=== PATIENT | male | born 1995 | race Caucasian/White ===

== ENCOUNTER → 2023-03-12 12:46 | Outpatient (CLI) | payer BC, SELFPAY ==
--- NOTE | ~2023-03-12 | XR_ITS ---
EXAM: XR ankle LT min 3V DATE: 03/12/2023 13:30 HISTORY: Pain in left ankle and joints of left foot . COMPARISON: None available. FINDINGS: Normal mineralization. No acute fracture or dislocation. Tiny ossific fragment medially, w ith slight irregularity of the distal tip of the medial malleolus, in the absence of traumatic histor y this may represent an small, old medial avulsion fracture. No lytic or blastic lesion. Joint spaces are maintained. No erosion or periosteal change. Soft tissues within normal limits. IMPRESSION: No acute osseous finding in the left ankle. Likely old, small medial malleolus tip avulsi on, correlate with history of remote trauma. Reviewed, dictated and finalized at location K. IMPRESSION: No acute osseous finding in the left ankle. Likely old, small media l malleolus tip avulsion, correlate with history of remote trauma.
== END ==
PROVIDERS: PCP Physician Assistant; Visit Provider Physician Assistant
DX: M25.572 Pain in left ankle and joints of left foot (principal)
CPT/HCPCS: 73610